=== PATIENT | female | born 1950 | race Caucasian/White ===

== ENCOUNTER 2019-12-01 20:53 | Inpatient (IN) ==
[2019-12-01] MEDS ORDERED: Ipratropium/Albuterol Neb 3 ML IH ONE (21:13)
[2019-12-01 21:53] LABS: Basophils % 0.2 %; Eosinophils # 0.2 K/mcL (0.0-0.6); Eosinophils % 1.7 %; Hematocrit 36.6 % (35.3-44.9); Hemoglobin 11.2 g/dL (11.5-15.4); Immature Granulocytes % 0.4 % (0-4); Lymphocytes % 14.4 %; Mean Corpuscular HGB Conc 30.6 g/dL (31.6-35.5); Mean Corpuscular Hemoglobin 28.7 pg (28.0-33.3); Mean Corpuscular Volume 93.8 fL (83.0-100.0); Monocytes # 0.6 K/mcL (0.0-1.3); Neutrophils # 10.8 K/mcL (1.6-8.9); Platelet Count 209 K/mcL (140-400); Red Cell Distribution Width 13.9 % (11.5-14.5); Segmented Neutrophils % 79.3 %; White Blood Count 13.7 K/mcL (4.3-11.1)
[2019-12-01 22:13] LABS: Albumin 3.5 g/dL (3.5-5.7); Albumin/Globulin Ratio 1.2 (1.1-2.2); Bilirubin,Total 0.2 mg/dL (0.3-1.0); Calcium 9.2 mg/dL (8.6-10.3); Globulin 2.9 g/dL (2.4-3.5); Potassium 4.7 mEq/L (3.5-5.1); Total Protein 6.4 g/dL (6.4-8.9)
[2019-12-01] MEDS ORDERED: 0.9 % Sodium Chloride 1,000 ML IVC ONE (22:33)
[2019-12-01] MEDS ORDERED: Vancomycin 1,250 MG/262.5 ML IV.SOLN IVPB ONE (23:00)
[2019-12-01] MEDS ORDERED: 0.9 % Sodium Chloride 250 ML ONE ×2 (23:03→23:28)
[2019-12-02] MEDS ORDERED: Naloxone 0.4 MG/ML INJ IVP PRN (00:48)
[2019-12-02] MEDS ORDERED: *HR* LORazepam 2 MG/ML VIAL IVP ONE ×2 (02:26→09:29)
[2019-12-02] MEDS: Albuterol 2.5 MG/3 ML NEBULIZER IH PRN (02:30)
[2019-12-02 03:58] LABS: Hematocrit 32.4 % (35.3-44.9); Hemoglobin 9.9 g/dL (11.5-15.4); Mean Corpuscular HGB Conc 30.6 g/dL (31.6-35.5); Mean Corpuscular Hemoglobin 29.4 pg (28.0-33.3); Mean Corpuscular Volume 96.1 fL (83.0-100.0); Mean Platelet Volume 11.9 fL (9.4-12.4); Platelet Count 193 K/mcL (140-400); Red Blood Count 3.37 M/mcL (3.82-4.97); Red Cell Distribution Width 13.6 % (11.5-14.5); White Blood Count 20.1 K/mcL (4.3-11.1)
[2019-12-02 04:01] LABS: INR 1.1; Prothrombin Time 12.8 Seconds (9.4-12.1)
[2019-12-02 04:04] LABS: Activated Partial Thrombo Time 28.9 Seconds (26.0-36.0)
[2019-12-02 04:23] LABS: BUN/Creatinine Ratio 45 (6-26); Blood Urea Nitrogen 43 mg/dL (8-23); Calcium 9.1 mg/dL (8.6-10.3); Carbon Dioxide 23 mEq/L (23-29); Chloride 105 mEq/L (98-107); Glucose 331 mg/dL (70-105); Osmolality,Calculated 312 (280-300); Phosphorous 1.9 mg/dL (2.7-4.5); Potassium 4.2 mEq/L (3.5-5.1); Sodium 139 mEq/L (136-145); eGFR For African Americans > 60 (> 60); eGFR For Non-African Americans 57 (> 60)
[2019-12-02] MEDS: Ipratropium/Albuterol Neb 3 ML IH SCH ×5 (05:34→21:35)
[2019-12-02] MEDS ORDERED: D5% in Water 1,000 ML IVC PRN (06:02)
[2019-12-02] MEDS ORDERED: *HR* Dextrose 50 % in Water (Vial) 50 ML VIAL IVP PRN (06:02)
[2019-12-02] MEDS ORDERED: Dextrose Gel 15 GM/37.5 ML TUBE PO PRN ×2 (06:02)
[2019-12-02] MEDS: niCARdipine 20 MG/200 ML MLS IVC SCH ×2 (08:19→13:02)
[2019-12-02] MEDS ORDERED: Iopamidol 100 ML in 0.9 % Sodium Chloride 50 ML IVP ONE (08:21)
[2019-12-02] MEDS ORDERED: Isovue-300 50ML VIAL IVP ONE (08:29)
[2019-12-02] MEDS ORDERED: Heparin 1,000 UNITS/500 mL 500 ML ONE (08:31)
[2019-12-02] MEDS ORDERED: Acetaminophen 325 MG TABLET PO PRN (08:58)
[2019-12-02] MEDS: Insulin LISPRO 300 UNITS/3 ML VIAL SQ SCH ×3 (13:11→23:26)
[2019-12-02] MEDS: Piperacillin/Tazobactam 3.375 GM in 0.9 % Sodium Chloride Mini Bag 100 ML IVPB SCH (19:37)
[2019-12-02] MEDS ORDERED: Nitroglycerin 0.4 MG TAB.SUBL SL PRN (21:21)
[2019-12-02] MEDS ORDERED: Fluticasone Propionate Nasal 50 MCG/SPRAY BOTTLE NS PRN (21:21)
[2019-12-03] MEDS ORDERED: Oxymetazoline Nasal SPRAY BOTTLE NS ONE (01:51)
[2019-12-03 02:16] LABS: Basophils # 0.1 K/mcL (0.0-0.2); Basophils % 0.5 %; Eosinophils # 0.2 K/mcL (0.0-0.6); Eosinophils % 1.4 %; Hematocrit 28.9 % (35.3-44.9); Hemoglobin 8.8 g/dL (11.5-15.4); Immature Granulocytes % 0.4 % (0-4); Lymphocytes # 2.4 K/mcL (0.6-4.6); Lymphocytes % 19.3 %; Mean Corpuscular HGB Conc 30.4 g/dL (31.6-35.5); Mean Corpuscular Hemoglobin 28.7 pg (28.0-33.3); Mean Corpuscular Volume 94.1 fL (83.0-100.0); Monocytes # 0.7 K/mcL (0.0-1.3); Monocytes % 6.1 %; Neutrophils # 8.8 K/mcL (1.6-8.9); Platelet Count 205 K/mcL (140-400); Red Blood Count 3.07 M/mcL (3.82-4.97); Red Cell Distribution Width 13.7 % (11.5-14.5); Segmented Neutrophils % 72.3 %; White Blood Count 12.2 K/mcL (4.3-11.1)
[2019-12-03 02:36] LABS: BUN/Creatinine Ratio 32 (6-26); Blood Urea Nitrogen 26 mg/dL (8-23); Carbon Dioxide 28 mEq/L (23-29); Chloride 106 mEq/L (98-107); Glucose 167 mg/dL (70-105); Osmolality,Calculated 299 (280-300); Potassium 3.7 mEq/L (3.5-5.1); Sodium 140 mEq/L (136-145); eGFR For African Americans > 60 (> 60); eGFR For Non-African Americans > 60 (> 60)
[2019-12-03] MEDS: Ipratropium/Albuterol Neb 3 ML IH SCH ×4 (03:32→21:46)
[2019-12-03] MEDS: Piperacillin/Tazobactam 3.375 GM in 0.9 % Sodium Chloride Mini Bag 100 ML IVPB SCH ×3 (03:48→19:51)
[2019-12-03] MEDS: Insulin LISPRO 300 UNITS/3 ML VIAL SQ SCH ×3 (06:08→16:52)
[2019-12-03] MEDS: BuPROPion XL (24 HR) 150 MG TABLET PO SCH (08:23)
[2019-12-03] MEDS: Cholecalciferol (D-3) 1,000 UNIT (25MCG) TABLET PO SCH (08:23)
[2019-12-03] MEDS: hydroCHLOROthiazide 25 MG TABLET PO SCH (08:23)
[2019-12-03] MEDS ORDERED: FLUTICASONE FUROATE IH SCH (09:00)
[2019-12-03] MEDS ORDERED: Insulin LISPRO 300 UNITS/3 ML VIAL SQ SCH ×2 (11:30→21:00)
[2019-12-03 13:47] LABS: Hematocrit 24.2 % (35.3-44.9); Hemoglobin 7.7 g/dL (11.5-15.4)
[2019-12-03] MEDS ORDERED: 0.9 % Sodium Chloride 250 ML ONE ×2 (16:06→21:30)
[2019-12-03] MEDS ORDERED: Insulin DETEMIR 100 UNIT/ML X5UNITS SQ SCH (21:00)
[2019-12-03] MEDS ORDERED: INSULIN DEGLUDEC 30 UNIT SQ SCH (21:00)
[2019-12-03] MEDS ORDERED: Latanoprost 2.5 ML BOTTLE BOTH EYES SCH (21:00)
[2019-12-03] MEDS ORDERED: Furosemide 20 MG/2 ML VIAL IVP ONE (23:57)
[2019-12-04] MEDS: Albuterol 2.5 MG/3 ML NEBULIZER IH PRN (01:29)
[2019-12-04 01:47] LABS: Basophils % 0.4 %; Eosinophils # 0.2 K/mcL (0.0-0.6); Eosinophils % 2.1 %; Hematocrit 30.7 % (35.3-44.9); Immature Granulocytes % 0.4 % (0-4); Lymphocytes # 2.6 K/mcL (0.6-4.6); Lymphocytes % 24.8 %; Mean Corpuscular HGB Conc 31.6 g/dL (31.6-35.5); Mean Corpuscular Volume 91.6 fL (83.0-100.0); Monocytes # 0.7 K/mcL (0.0-1.3); Monocytes % 6.6 %; Platelet Count 189 K/mcL (140-400); Red Blood Count 3.35 M/mcL (3.82-4.97); Red Cell Distribution Width 14.1 % (11.5-14.5); Segmented Neutrophils % 65.7 %; White Blood Count 10.6 K/mcL (4.3-11.1)
[2019-12-04 01:48] LABS: Hemoglobin 9.7 g/dL (11.5-15.4)
[2019-12-04 02:05] LABS: Calcium 8.5 mg/dL (8.6-10.3); Potassium 3.5 mEq/L (3.5-5.1)
[2019-12-04] MEDS: Piperacillin/Tazobactam 3.375 GM in 0.9 % Sodium Chloride Mini Bag 100 ML IVPB SCH (03:27)
[2019-12-04] MEDS: Ipratropium/Albuterol Neb 3 ML IH SCH ×2 (04:06→10:00)
[2019-12-04] MEDS: hydroCHLOROthiazide 25 MG TABLET PO SCH (08:35)
[2019-12-04] MEDS: BuPROPion XL (24 HR) 150 MG TABLET PO SCH (08:35)
[2019-12-04] MEDS: Cholecalciferol (D-3) 1,000 UNIT (25MCG) TABLET PO SCH (08:36)
[2019-12-04] MEDS: Insulin LISPRO 300 UNITS/3 ML VIAL SQ SCH (08:55)
[2019-12-04] MEDS ORDERED: MethylPREDNISolone 40 MG/ML VIAL IVP ONE (10:00)
[2019-12-04 11:16] VITALS: BP 106/54
== END 2019-12-04 15:01 | disposition home health service (06) | DRG 854 ==
LOC: 3BNU 20:53 → EMEROOARM 20:53 → CDU 12-02 00:59 → 2ANU 12-02 16:05
PROVIDERS: ADMIT Internal Medicine; ATTEND Internal Medicine